=== PATIENT | male | born 1995 | race Hispanic/Latino ===

== ENCOUNTER 2016-06-17 07:56 | Emergency (ER) | payer MEDICAID ==
[2016-06-17 08:02] VITALS: BP 118/70; PULSE 97; RESP 16; TEMP 96.7; O2SAT 96
[2016-06-17] MEDS ORDERED: TDAP Vaccine 0.5 mL Syr IM ONE (08:25)
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
== END 2016-06-17 10:51 | disposition home or self-care (01) ==
LOC: H.ER 07:56 → SUPCPDRO 07:56 → H.ER 10:51
DX: S09.90XA Unspecified injury of head, initial encounter (principal); M54.2 Cervicalgia; Y04.0XXA Assault by unarmed brawl or fight, initial encounter; Y92.89 Other specified places as the place of occurrence of the external cause

== ENCOUNTER 2016-08-19 11:51 | Emergency (ER) | payer MEDICAID ==
[2016-08-19 12:15] VITALS: BMI 20.5
[2016-08-19 12:23] VITALS: BP 118/62; PULSE 68; RESP 18; TEMP 98.3; O2SAT 98
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
--- NOTE | 2016-08-19 15:10 | RAD ---
PROCEDURE: Right Index finger radiographs. HISTORY: jammed during fall COMPARISON: None. TECHNIQUE: AP radiograph of the right hand, as well as spot oblique and lateral images of index finger were obtained. FINDINGS: RIGHT INDEX FINGER: Acute avulsion fracture at the base of the distal phalanx at the insertion of the extensor tendon. JOINTS: Normal. SOFT TISSUES: No appreciable soft tissue swelling. OTHER FINDINGS: None. IMPRESSION: Acute avulsion fracture at the base of the distal phalanx right 2nd digit.
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
== END 2016-08-19 14:12 | disposition home or self-care (01) ==
LOC: H.ER 11:51
DX: S93.401A Sprain of unspecified ligament of right ankle, initial encounter (principal); S62.610A Displaced fracture of proximal phalanx of right index finger, initial encounter for closed fracture; Y93.67 Activity, basketball; Y92.9 Unspecified place or not applicable; Y99.9 Unspecified external cause status

== ENCOUNTER 2016-09-22 00:38 | Emergency (ER) | payer SELFPAY ==
[2016-09-22 00:38] VITALS: BMI 20.5
[2016-09-22 01:11] VITALS: RESP 16
--- NOTE | 2016-09-22 01:33 | ED PDOC ---
HPI: Dental Pain/Injury Time Seen by Provider: 09/22/16 01:00 Chief Complaint (Nursing): Dental Pain Chief Complaint (Provider): toothache History Per: Patient History/Exam Limitations: no limitations Onset/Duration Of Symptoms: Hrs Current Symptoms Are (Timing): Still Present Additional History Per: Patient Additional Complaint(s): 21 y/o male presents with right upper toothache x 2 hours. Patient states he was chewing on ice when he felt pain; thinks he cracked the tooth. Denies fever , facial swelling, difficulty speaking/swallowing. Past Medical History Reviewed: Historical Data, Nursing Documentation, Vital Signs Vital Signs: Last Vital Signs Temp 98.7 F 09/22/16 01:08 Pulse 137 H 09/22/16 01:08 Resp 16 09/22/16 01:08 BP 120/63 09/22/16 01:08 Pulse Ox 99 09/22/16 01:08 - Medical History PMH: No Chronic Diseases - Surgical History Surgical History: No Surg Hx - Family History Family History: States: Unknown Family Hx - Home Medications Home Medications: Ambulatory Orders Medication Instructions Recorded oxyCODONE/Acetaminophen [Percocet 1 ea PO Q6 PRN #15 tab 07/25/15 5/325 mg Tab] Ibuprofen [Motrin Tab] 800 mg PO Q6H PRN #20 tab 08/19/16 Ibuprofen [Motrin Tab] 800 mg PO Q6 PRN #15 tab 09/22/16 - Allergies Allergies/Adverse Reactions: Allergies Allergy/AdvReac Type Severity Reaction Status Date / Time No Known Allergies Allergy Verified 08/19/16 12:19 Review of Systems ROS Statement: Except As Marked, All Systems Reviewed And Found Negative ENT: Positive for: Mouth Pain (right upper tooth) Physical Exam - Reviewed Nursing Documentation Reviewed: Yes Vital Signs Reviewed: Yes - Physical Exam Appears: Positive for: Well, Non-toxic, No Acute Distress (sleeping) Head Exam: Positive for: ATRAUMATIC, NORMAL INSPECTION, NORMOCEPHALIC ENT: Positive for: Other (right upper 2nd molar with + dental decay, superficially chipped. No surrounding gum swelling, tenderness, abscess. No facial erythema, swelling. ) Cardiovascular/Chest: Positive for: Regular Rate, Rhythm Respiratory: Positive for: Normal Breath Sounds - ECG O2 Sat by Pulse Oximetry: 99 Disposition - Clinical Impression Clinical Impression: Toothache - Patient ED Disposition Is Patient to be Admitted: No Counseled Patient/Family Regarding: Diagnosis, Need For Followup, Rx Given - Disposition Referrals: Jamse Dale MD [Primary Care Provider] - Disposition: Routine/Home Disposition Time: :59 Condition: IMPROVED Additional Instructions: Follow up with Dentist in 2-3 days. Take medication as directed. Return to ED for worsening/concerning symptoms. Prescriptions: Ibuprofen [Motrin Tab] 800 mg PO Q6 PRN #15 tab PRN Reason: Pain, Moderate (4-7) Instructions: Toothache (ED), Dental Caries (ED), Acute Dental Trauma (ED)
[2016-09-22 03:06] VITALS: BP 112/66; PULSE 104; TEMP 98; O2SAT 98
== END 2016-09-22 02:26 | disposition home or self-care (01) ==
LOC: H.ER 00:38
DX: K08.89 Other specified disorders of teeth and supporting structures (principal)
CPT/HCPCS: 96372; 99283; J1885